=== PATIENT | male | born 1955 | race Hispanic/Latino ===

== ENCOUNTER 2017-09-27 09:45 | Outpatient (CLI) | payer OTHER | END 2017-09-27 09:46 | disposition home or self-care (01) | LOC: BICRAD 09:45 | PROVIDERS: ATTEND Internal Medicine | DX: Z02.71 Encounter for disability determination (principal); M17.11 Unilateral primary osteoarthritis, right knee ==

== ENCOUNTER 2020-10-29 10:42 | Emergency (ER) | payer OTHER, SELFPAY ==
[2020-10-29 11:32] LABS: Hemoglobin 11.2 g/dL (14.0-18.0); Mean Corpuscular Hemoglobin 27.5 pg (27.0-31.0); Mean Corpuscular Volume 88.9 fL (78.0-98.0); Mean Platelet Volume 9.3 fL (7.4-10.4); Platelet Count 190 thou/uL (130-400); RBC Distribution Width 12.6 % (11.5-14.5); Red Blood Cell (RBC) Count 4.07 mill/uL (4.70-6.10); White Blood Cell (WBC) Count 13.6 thou/uL (4.8-10.8)
[2020-10-29] MEDS ORDERED: cefTRIAXone\\ROCEPHIN 2 GM VIAL ONE (11:32)
[2020-10-29 11:37] LABS: INR-International Normal Ratio 1.6; PTT 33.8 sec (22.9-36.1)
[2020-10-29] MEDS ORDERED: Cefepime 2 GM VIAL ONE (11:41)
[2020-10-29] MEDS ORDERED: Norepinephrine 8 MG/0.9% NS 250 ML ONE (11:44)
[2020-10-29 11:54] LABS: Bacteria/HPF 4+ HPF (None Seen); Bilirubin Negative (Negative); Blood, Urine 1+ (Negative); Clarity Turbid (Clear); Glucose, Urine (Dipstick) Greater than 1000 mg/dL (Negative); Ketone, Urine Negative (Negative); Leukocyte 75 Leu/uL (Negative); Nitrite Negative (Negative); Protein, Urine (Dipstick) 100 mg/dL (Neg-Trace); Specific Gravity, Urine 1.022 (1.002-1.036); Squamous Epithelial 0-3 HPF (0-3); Urobilinogen Normal mg/dL (Less than 2); WBC/HPF 21-50 HPF (0-3); pH, Urine 5.5 (5.0-9.0)
[2020-10-29 12:10] LABS: ALT (SGPT) 54 U/L (8-55); AST (SGOT) 168 U/L (5-34); Albumin 3.3 g/dL (3.4-4.8); Alkaline Phosphatase 157 U/L (40-110); Anion Gap 23 mmol/L (10-20); BUN (Urea Nitrogen) 35 mg/dL (8.4-25.7); Bilirubin, Total 0.6 mg/dL (0.2-1.2); Calc. Creatinine Clearance 0 mL/min (70-130); Carbon Dioxide 15 mmol/L (23-31); Chloride 102 mmol/L (98-107); Glucose 452 mg/dL (80-115); Potassium 3.7 mmol/L (3.5-5.1); Protein, Total 6.3 g/dL (5.8-8.1); Sodium 136 mmol/L (136-145)
[2020-10-29 12:21] LABS: Band 41 % (5-11); Eosinophils 1 % (0-10); Lymphocytes 3 % (21-51); MDiff Complete? YES; Monocytes 1 % (0-10); Neutrophil 54 % (42-75); Platelet Morphology Comment Appears Adequate; Polychromasia SLIGHT = 2-3 cells (100X) (0-2/hpf)
[2020-10-29 12:23] LABS: CKMB 33.1 ng/mL (0-6.6)
--- NOTE | 2020-10-29 12:36 | RAD ---
EXAM: Single view of the chest HISTORY: Fall at home. Fever. COMPARISON: None FINDINGS: Single view of the chest shows a normal sized cardiomediastinal silhouette. A right IJ aubrey tral venous catheter seen with its tip in superior vena cava. There is no evidence of consolidation, mass, or pleural effusion. Degenerative changes are seen in the spine. IMPRESSION: No evidence of acute cardiopulmonary disease
--- NOTE | 2020-10-29 13:01 | CT ---
CT Abdomen Pelvis WO Con: 10/29/2020 12:30 PM HISTORY: Abdominal pain COMPARISON: None. TECHNIQUE: Multiple contiguous axial images were obtained and a CT of the abdomen and pelvis without IV contrast . Coronal and sagittal reformats were performed. FINDINGS: This examination is limited for the evaluation of solid organs and vascular structures due to the lac k of intravenous contrast. Lower Chest: Opacities in the lung bases may represent atelectasis or subtle infiltrates. Abdomen: Liver: within normal limits. Bile Ducts: Normal caliber. Gallbladder: No calcified gallstones. Normal caliber wall. Pancreas: within normal limits. Spleen: within normal limits. Adrenals: 2.9 cm right adrenal mass with mean Hounsfield value of 2. Kidneys: within normal limits. Pelvis: Reproductive Organs: No pelvic masses. Ureters: within normal limits. Bladder: Air present within the urinary bladder. Bowel: Normal caliber. Normal appendix. Mesenteric Lymph Nodes: No enlarged mesenteric lymph nodes. Peritoneum: No ascites or free air, no fluid collection. Vessels: Atherosclerotic calcifications in the aorta Retroperitoneum: within normal limits. Abdominal Wall: within normal limits. Bones: Degenerative changes in the spine. IMPRESSION: . No evidence of acute intra-abdominal/pelvic abnormality 2. Right adrenal adenoma 3. Possible lower lobe infiltrates in the lungs 4. Air in the urinary bladder may be from recent instrumentation. This could also be secondary to a u rinary tract infection.
[2020-10-29] MEDS ORDERED: VANCOMYCIN 2 GRAM/400 ML BAG 2 GM in Premix Bag 1 BAG IVPB SCH (13:15)
[2020-10-29 13:22] LABS: SARS-CoV-2 NAA Rapid Test DETECTED (NotDetected)
[2020-10-29] MEDS ORDERED: Aspirin 325 MG TAB ONE (13:38)
[2020-10-29] MEDS ORDERED: Enoxaparin Sodium 100 MG/ML SYRINGE ONE ×2 (13:38→13:41)
[2020-10-29] MEDS ORDERED: Enoxaparin Sodium 30 MG/0.3 ML SYRINGE ONE (13:38)
[2020-10-29] MEDS ORDERED: Aspirin Chewable 81 MG TAB ONE (13:43)
[2020-10-29 14:52] LABS: Lactic Acid 3.5 mmol/L (0.5-2.2)
--- NOTE | 2020-11-01 15:39 | EKG ---
Test Reason : SEPSIS ALERT Blood Pressure : / mmHG Vent. Rate : 113 BPM Atrial Rate : 113 BPM P-R Int : 184 ms QRS Dur : 104 ms QT Int : 360 ms P-R-T Axes : 014 -50 066 degrees QTc Int : 493 ms Sinus tachycardia with occasional Premature ventricular complexes and Fusion complexes Left anterior fascicular block Abnormal ECG Confirmed by IVON NARAYANAN DO ([id number]), marketing editor KARELY CARMONA ([id number] on 11/01/2020 3:39:14 PM Referred By: Confirmed By:IVON NARAYANAN DO
== END 2020-10-29 16:28 | disposition short-term general hospital (02) ==
LOC: ERS 10:42
DX: A41.9 Sepsis, unspecified organism (principal); R65.21 Severe sepsis with septic shock; I21.A1 Myocardial infarction type 2; U07.1 COVID-19; N39.0 Urinary tract infection, site not specified; E11.65 Type 2 diabetes mellitus with hyperglycemia; Z79.84 Long term (current) use of oral hypoglycemic drugs
CPT/HCPCS: 0240U; 36415; 36416; 36556; 71045; 74176; 80053; 81003; 81015; 82010; 82553; 83605; 84484; 85025; 85610; 85730; 87040; 87045; 87046; 87077; 87086; 87149; 87186; 87324; 87427; 87449; 93005; 94760; 96365; 96366; 96367; 96372; 99292; J0692; J0696; J1650; J3370

== ENCOUNTER 2021-01-19 12:59 | Outpatient (CLI) | payer MEDICARE | END 2021-01-19 13:00 | disposition home or self-care (01) | LOC: ULT 12:59 | PROVIDERS: ATTEND Internal Medicine Infectious Disease | DX: I38 Endocarditis, valve unspecified (principal); I07.1 Rheumatic tricuspid insufficiency; I37.1 Nonrheumatic pulmonary valve insufficiency | CPT/HCPCS: 93306 ==

== ENCOUNTER 2022-03-09 19:39 | Inpatient (IN) | payer MEDICARE ==
[2022-03-09] MEDS ORDERED: Cefepime 2 GM VIAL ONE (20:03)
[2022-03-09] MEDS ORDERED: VANCOMYCIN 2 GRAM/500 ML BAG 2 GM in Premix Bag 1 BAG IVPB SCH (20:15)
[2022-03-09 20:21] LABS: #Monocytes 0.7 thou/uL (0.11-0.59); #Neutrophils 9.2 thou/uL (1.40-6.50); %Basophils 0.4 % (0.0-1.0); %Eosinophils 0.2 % (0.0-10.0); %Lymphocytes 9.2 % (21.0-51.0); %Monocytes 6.6 % (0.0-10.0); %Neutrophils 83.6 % (42.0-75.0); Hemoglobin 12.8 g/dL (14.0-18.0); Mean Corpuscular HGB CONC 33.1 g/dL (32.0-36.0); Mean Corpuscular Hemoglobin 29.3 pg (27.0-31.0); Mean Corpuscular Volume 88.5 fL (78.0-98.0); Platelet Count 235 thou/uL (130-400); RBC Distribution Width 11.5 % (11.5-14.5); Red Blood Cell (RBC) Count 4.35 mill/uL (4.70-6.10)
[2022-03-09 20:43] LABS: ALT (SGPT) 11 U/L (8-55); AST (SGOT) 10 U/L (5-34); Albumin 3.7 g/dL (3.4-4.8); Alkaline Phosphatase 162 U/L (40-110); Anion Gap 25 mmol/L (10-20); BUN (Urea Nitrogen) 41 mg/dL (8.4-25.7); Bilirubin, Total 0.5 mg/dL (0.2-1.2); CK (CPK) 78 U/L (30-200); Calc. Creatinine Clearance 0 mL/min (70-130); Calcium 8.9 mg/dL (7.8-10.44); Carbon Dioxide 20 mmol/L (23-31); Chloride 84 mmol/L (98-107); Estimated GFR 21; Globulin 3.7 g/dL (2.4-3.5); Potassium 4.6 mmol/L (3.5-5.1); Protein, Total 7.4 g/dL (5.8-8.1); Sodium 124 mmol/L (136-145)
[2022-03-09 20:54] LABS: Glucose 888 mg/dL (80-115)
[2022-03-09 21:04] LABS: CKMB 1.2 ng/mL (0-6.6)
[2022-03-09] MEDS ORDERED: Insulin Regular 300 UNITS/3 ML VIAL ONE (21:53)
[2022-03-09] MEDS ORDERED: Aspirin Chewable 81 MG TAB ONE (21:53)
[2022-03-09] MEDS ORDERED: Ondansetron PF 4 MG/2 ML Vial IVP PRN (22:40)
[2022-03-09] MEDS ORDERED: Acetaminophen 325 MG TAB PO PRN (22:40)
[2022-03-09 22:56] LABS: Anion Gap 18 mmol/L (10-20); BUN (Urea Nitrogen) 38 mg/dL (8.4-25.7); Calc. Creatinine Clearance 0 mL/min (70-130); Calcium 8.7 mg/dL (7.8-10.44); Carbon Dioxide 23 mmol/L (23-31); Chloride 89 mmol/L (98-107); Estimated GFR 24; Sodium 126 mmol/L (136-145)
[2022-03-09 22:58] LABS: Bacteria/HPF 1+ HPF (None Seen); Bilirubin Negative (Negative); Blood, Urine 1+ (Negative); Clarity Clear (Clear); Glucose, Urine (Dipstick) Greater than 1000 mg/dL (Negative); Ketone, Urine Negative (Negative); Leukocyte 250 Leu/uL (Negative); Nitrite Negative (Negative); Protein, Urine (Dipstick) 30 mg/dL (Neg-Trace); Renal Epithelial 0-3 HPF (None Seen); Specific Gravity, Urine 1.015 (1.002-1.036); Squamous Epithelial 0-3 HPF (0-3); Urobilinogen Normal mg/dL (Less than 2); Yeast-Budding 1+ HPF (None Seen); pH, Urine 5.5 (5.0-9.0)
[2022-03-09 23:01] LABS: Glucose 726 mg/dL (80-115)
[2022-03-09 23:03] LABS: Amphetamine Not Detected (NotDetected); Barbiturates Screen Not Detected (NotDetected); Benzodiazepine Screen Not Detected (NotDetected); Cocaine Metabolite Screen Not Detected (NotDetected); Methadone Not Detected (NotDetected); Methamphetamine Not Detected (NotDetected); Opiate Screen Not Detected (NotDetected); Oxycodone Screen Not Detected (NotDetected); Phencyclidine (PCP) Not Detected (NotDetected); THC/Cannabinoid Screen Not Detected (NotDetected); Tricyclic Screen Not Detected (NotDetected)
[2022-03-09 23:04] LABS: Actual Bicarbonate (HCO3v) 24 mEq/L (22-28); Analyzer IN Cardio ER; Base Excess -2.1 mEq/L (-2.0 to +3.0); Calcium, Ionized (venous) 1.07 mmol/L (1.16-1.32); Chloride (VBG) 91 mmol/L (98-106); Hemoglobin (Hb) 13.3 g/dL (13.1-17.2); Potassium (VBG) 4.19 mmol/L (3.70-5.30); Sodium 126.1 mmol/L (133-146); pH (venous) 7.35 (7.32-7.43)
[2022-03-09 23:10] LABS: Troponin I 0.077 ng/mL (< 0.028)
[2022-03-09] MEDS ORDERED: HumaLOG 300 UNITS/3 ML VIAL SC PRN (23:10)
[2022-03-09] MEDS ORDERED: Dextrose 50% Abboject 50 ML SYRINGE SLOW IVP PRN (23:10)
[2022-03-09] MEDS ORDERED: Dextrose 5% in Water 1,000 ML IV PRN (23:10)
[2022-03-09 23:20] LABS: Lactic Acid 2.9 mmol/L (0.5-2.2)
[2022-03-09] MEDS ORDERED: Insulin Glargine 30 UNITS/0.3 ML VIAL SC SCH (23:30)
[2022-03-09 23:43] LABS: SARS-CoV-2 NAA Rapid Test Not Detected (NotDetected)
[2022-03-10] MEDS ORDERED: Lactated Ringer's 1,000 ML IV SCH (01:30)
[2022-03-10 01:59] VITALS: BMI 45.9
[2022-03-10 02:22] LABS: #Basophils 0.1 thou/uL (0.0-0.2); #Monocytes 0.8 thou/uL (0.11-0.59); #Neutrophils 7.4 thou/uL (1.40-6.50); %Basophils 0.6 % (0.0-1.0); %Eosinophils 0.4 % (0.0-10.0); %Lymphocytes 19.6 % (21.0-51.0); %Monocytes 7.9 % (0.0-10.0); %Neutrophils 71.6 % (42.0-75.0); Hemoglobin 12.9 g/dL (14.0-18.0); Mean Corpuscular HGB CONC 33.8 g/dL (32.0-36.0); Mean Corpuscular Hemoglobin 29.8 pg (27.0-31.0); Mean Corpuscular Volume 88.2 fL (78.0-98.0); Mean Platelet Volume 8.6 fL (7.4-10.4); Platelet Count 218 thou/uL (130-400); RBC Distribution Width 11.5 % (11.5-14.5); Red Blood Cell (RBC) Count 4.32 mill/uL (4.70-6.10); White Blood Cell (WBC) Count 10.4 thou/uL (4.8-10.8)
[2022-03-10 02:39] LABS: Glucose POC Confirmation 637 mg/dl (80-115)
[2022-03-10 02:41] LABS: Hemoglobin A1c Greater than 14.0 % (4.0-6.0)
[2022-03-10] MEDS ORDERED: hydrALAZINE 20 MG/ML VIAL SLOW IVP PRN (02:43)
[2022-03-10] MEDS ORDERED: Sodium Chloride 0.9% 1,000 ML IV SCH (02:45)
[2022-03-10 02:47] LABS: Troponin I 0.107 ng/mL (< 0.028)
[2022-03-10] MEDS: HumaLOG 300 UNITS/3 ML VIAL SC PRN ×4 (02:49→19:08)
[2022-03-10 06:56] LABS: Lactic Acid 2.7 mmol/L (0.5-2.2)
[2022-03-10 07:05] LABS: Troponin I 0.119 ng/mL (< 0.028)
[2022-03-10] MEDS ORDERED: cefTRIAXone\\ROCEPHIN 1 GM in Sodium Chloride 0.9% 100 ML IVPB SCH (08:00)
[2022-03-10] MEDS ORDERED: Heparin 5,000 UNITS/ML VIAL SC SCH (09:00)
[2022-03-10] MEDS: Aspirin Chewable 81 MG TAB PO SCH (10:44)
[2022-03-10] MEDS ORDERED: Meropenem 1 GM in Sodium Chloride 0.9% 100 ML IVPB SCH ×2 (15:15→22:00)
[2022-03-10 15:58] LABS: #Basophils 0.1 thou/uL (0.0-0.2); #Eosinphils 0.2 thou/uL (0.0-0.7); #Lymphocytes 1.6 thou/uL (1.20-3.40); #Monocytes 0.7 thou/uL (0.11-0.59); #Neutrophils 6.3 thou/uL (1.40-6.50); %Basophils 0.6 % (0.0-1.0); %Eosinophils 2.1 % (0.0-10.0); %Lymphocytes 18.3 % (21.0-51.0); %Monocytes 7.7 % (0.0-10.0); %Neutrophils 71.4 % (42.0-75.0); Hemoglobin 11.6 g/dL (14.0-18.0); Mean Corpuscular HGB CONC 33.5 g/dL (32.0-36.0); Mean Corpuscular Hemoglobin 29.2 pg (27.0-31.0); Mean Corpuscular Volume 87.1 fL (78.0-98.0); Mean Platelet Volume 8.4 fL (7.4-10.4); Platelet Count 217 thou/uL (130-400); RBC Distribution Width 11.4 % (11.5-14.5); Red Blood Cell (RBC) Count 3.97 mill/uL (4.70-6.10); White Blood Cell (WBC) Count 8.8 thou/uL (4.8-10.8)
[2022-03-10 16:20] LABS: ALT (SGPT) 8 U/L (8-55); AST (SGOT) 15 U/L (5-34); Albumin 3.2 g/dL (3.4-4.8); Alkaline Phosphatase 133 U/L (40-110); Anion Gap 12 mmol/L (10-20); BUN (Urea Nitrogen) 30 mg/dL (8.4-25.7); Bilirubin, Total 0.3 mg/dL (0.2-1.2); Calc. Creatinine Clearance 80 mL/min (70-130); Calcium 8.8 mg/dL (7.8-10.44); Carbon Dioxide 28 mmol/L (23-31); Chloride 96 mmol/L (98-107); Estimated GFR 44; Globulin 3.6 g/dL (2.4-3.5); Glucose 208 mg/dL (80-115); Potassium 3.2 mmol/L (3.5-5.1); Protein, Total 6.8 g/dL (5.8-8.1); Sodium 133 mmol/L (136-145)
[2022-03-10] MEDS: Sodium Chloride 0.9% 1,000 ML IV SCH (16:25)
[2022-03-10] MEDS ORDERED: Potassium Chloride 20 MEQ TAB PO SCH (17:45)
[2022-03-10] MEDS: Rivaroxaban 10 MG TAB PO SCH (17:51)
[2022-03-10] MEDS: Atorvastatin Calcium 40 MG TAB PO SCH (20:27)
[2022-03-10] MEDS: Insulin Glargine 30 UNITS/0.3 ML VIAL SC SCH (20:27)
[2022-03-10 20:55] LABS: Creatinine, Urine 26.81 mg/dL (63-166); Microalbumin Urine 7.4 mg/dL (0.5-50.0)
[2022-03-11] MEDS: Sodium Chloride 0.9% 1,000 ML IV SCH ×3 (00:57→16:29)
[2022-03-11 05:00] LABS: #Basophils 0.1 thou/uL (0.0-0.2); #Eosinphils 0.3 thou/uL (0.0-0.7); #Lymphocytes 1.5 thou/uL (1.20-3.40); #Monocytes 0.7 thou/uL (0.11-0.59); #Neutrophils 7.4 thou/uL (1.40-6.50); %Basophils 0.8 % (0.0-1.0); %Eosinophils 3.1 % (0.0-10.0); %Lymphocytes 14.7 % (21.0-51.0); %Monocytes 6.8 % (0.0-10.0); %Neutrophils 74.7 % (42.0-75.0); Hemoglobin 12.8 g/dL (14.0-18.0); Mean Corpuscular HGB CONC 33.2 g/dL (32.0-36.0); Mean Corpuscular Hemoglobin 29.5 pg (27.0-31.0); Mean Corpuscular Volume 88.9 fL (78.0-98.0); Mean Platelet Volume 8.5 fL (7.4-10.4); Platelet Count 234 thou/uL (130-400); RBC Distribution Width 11.5 % (11.5-14.5); Red Blood Cell (RBC) Count 4.34 mill/uL (4.70-6.10)
[2022-03-11] MEDS: HumaLOG 300 UNITS/3 ML VIAL SC PRN ×2 (05:56→13:00)
[2022-03-11] MEDS ORDERED: Meropenem 1 GM in Sodium Chloride 0.9% 100 ML IVPB SCH (06:00)
[2022-03-11 08:00] LABS: Albumin 3.2 g/dL (3.4-4.8); Anion Gap 11 mmol/L (10-20); BUN (Urea Nitrogen) 24 mg/dL (8.4-25.7); BUN/Creatinine Ratio 17.52; Calc. Creatinine Clearance 99 mL/min (70-130); Calcium 8.9 mg/dL (7.8-10.44); Carbon Dioxide 29 mmol/L (23-31); Chloride 97 mmol/L (98-107); Estimated GFR 58; Glucose 158 mg/dL (80-115); Magnesium 2.2 mg/dL (1.6-2.6); Phosphorus 2.6 mg/dL (2.3-4.7); Potassium 3.6 mmol/L (3.5-5.1); Sodium 133 mmol/L (136-145)
[2022-03-11] MEDS: Aspirin Chewable 81 MG TAB PO SCH (09:44)
[2022-03-11] MEDS: Meropenem 1 GM in Sodium Chloride 0.9% 100 ML IVPB SCH ×2 (13:00→20:17)
[2022-03-11] MEDS: Rivaroxaban 10 MG TAB PO SCH (16:27)
[2022-03-11] MEDS: Insulin Glargine 30 UNITS/0.3 ML VIAL SC SCH (20:18)
[2022-03-11] MEDS: Atorvastatin Calcium 40 MG TAB PO SCH (20:18)
[2022-03-12] MEDS: Sodium Chloride 0.9% 1,000 ML IV SCH (02:33)
[2022-03-12 04:42] LABS: #Basophils 0.1 thou/uL (0.0-0.2); #Eosinphils 0.3 thou/uL (0.0-0.7); #Lymphocytes 1.8 thou/uL (1.20-3.40); #Monocytes 0.8 thou/uL (0.11-0.59); #Neutrophils 5.4 thou/uL (1.40-6.50); %Basophils 0.7 % (0.0-1.0); %Eosinophils 3.9 % (0.0-10.0); %Lymphocytes 21.2 % (21.0-51.0); %Monocytes 9.9 % (0.0-10.0); %Neutrophils 64.3 % (42.0-75.0); Hemoglobin 11.9 g/dL (14.0-18.0); Mean Corpuscular HGB CONC 32.2 g/dL (32.0-36.0); Mean Corpuscular Hemoglobin 28.9 pg (27.0-31.0); Mean Corpuscular Volume 89.8 fL (78.0-98.0); Mean Platelet Volume 8.5 fL (7.4-10.4); Platelet Count 232 thou/uL (130-400); RBC Distribution Width 11.5 % (11.5-14.5); White Blood Cell (WBC) Count 8.5 thou/uL (4.8-10.8)
[2022-03-12 05:04] LABS: Albumin 2.8 g/dL (3.4-4.8); Anion Gap 14 mmol/L (10-20); BUN (Urea Nitrogen) 15 mg/dL (8.4-25.7); BUN/Creatinine Ratio 14.29; Calc. Creatinine Clearance 130 mL/min (70-130); Calcium 8.7 mg/dL (7.8-10.44); Carbon Dioxide 25 mmol/L (23-31); Chloride 102 mmol/L (98-107); Estimated GFR 79; Glucose 169 mg/dL (80-115); Phosphorus 2.4 mg/dL (2.3-4.7); Potassium 3.7 mmol/L (3.5-5.1); Sodium 137 mmol/L (136-145)
[2022-03-12] MEDS: Meropenem 1 GM in Sodium Chloride 0.9% 100 ML IVPB SCH (05:54)
[2022-03-12] MEDS: Aspirin Chewable 81 MG TAB PO SCH (08:48)
[2022-03-12] MEDS ORDERED: Amlodipine 5 MG TAB PO SCH (10:00)
[2022-03-12 12:12] VITALS: BP 138/78; TEMP 98
[2022-03-13] MEDS ORDERED: Amlodipine 5 MG TAB PO SCH (09:00)
== END 2022-03-12 13:30 | disposition home or self-care (01) | DRG 871 ==
LOC: ERS 19:39 → 2SW 21:45 → OBSVTOIN 03-10 15:47
PROVIDERS: ADMIT Internal Medicine; ATTEND Internal Medicine
DX: A41.9 Sepsis, unspecified organism (principal); E11.10 Type 2 diabetes mellitus with ketoacidosis without coma; I21.A1 Myocardial infarction type 2; I50.42 Chronic combined systolic (congestive) and diastolic (congestive) heart failure; N17.9 Acute kidney failure, unspecified; N39.0 Urinary tract infection, site not specified; E87.1 Hypo-osmolality and hyponatremia; Z68.42 Body mass index [BMI] 45.0-49.9, adult; Z20.822 Contact with and (suspected) exposure to COVID-19; I11.0 Hypertensive heart disease with heart failure; D64.9 Anemia, unspecified; F17.210 Nicotine dependence, cigarettes, uncomplicated; E86.0 Dehydration; E66.01 Morbid (severe) obesity due to excess calories; E78.5 Hyperlipidemia, unspecified; E11.21 Type 2 diabetes mellitus with diabetic nephropathy; Z79.01 Long term (current) use of anticoagulants; Z79.4 Long term (current) use of insulin; Z79.82 Long term (current) use of aspirin; Z79.899 Other long term (current) drug therapy; Z79.84 Long term (current) use of oral hypoglycemic drugs
CPT/HCPCS: 0439T; 36415; 36416; 70450; 71045; 80053; 80069; 80306; 81003; 81015; 82010; 82043; 82550; 82553; 82805; 82947; 83036; 83605; 83735; 83880; 84156; 84484; 85025; 87040; 87070; 87077; 87086; 87149; 87186; 87205; 93005; 93306; 97139; J0692; J0696; J1815; J2185; J3370; J3490; J7050

== ENCOUNTER 2022-06-19 19:03 | Inpatient (IN) | payer MEDICARE, OTHER ==
[2022-06-19 19:40] LABS: #Basophils 0.1 thou/uL (0.0-0.2); #Lymphocytes 1.8 thou/uL (1.20-3.40); #Monocytes 1.2 thou/uL (0.11-0.59); #Neutrophils 11.4 thou/uL (1.40-6.50); %Basophils 0.4 % (0.0-1.0); %Eosinophils 0.3 % (0.0-10.0); %Lymphocytes 12.7 % (21.0-51.0); %Neutrophils 78.6 % (42.0-75.0); Hemoglobin 12.2 g/dL (14.0-18.0); Mean Corpuscular HGB CONC 32.2 g/dL (32.0-36.0); Mean Corpuscular Hemoglobin 28.8 pg (27.0-31.0); Mean Corpuscular Volume 89.2 fL (78.0-98.0); Mean Platelet Volume 7.7 fL (7.4-10.4); Platelet Count 525 thou/uL (130-400); RBC Distribution Width 13.3 % (11.5-14.5); Red Blood Cell (RBC) Count 4.25 mill/uL (4.70-6.10); White Blood Cell (WBC) Count 14.5 thou/uL (4.8-10.8)
[2022-06-19] MEDS ORDERED: Cefepime 2 GM VIAL ONE (19:54)
[2022-06-19] MEDS ORDERED: Vancomycin 1 GM/200 ML BAG ONE (19:54)
[2022-06-19 19:59] LABS: INR-International Normal Ratio 1.4; PTT 36.2 sec (22.9-36.1); Prothrombin Time 17.2 sec (12.0-14.7)
[2022-06-19 20:03] LABS: ALT (SGPT) 13 U/L (8-55); AST (SGOT) 9 U/L (5-34); Albumin 2.7 g/dL (3.4-4.8); Alkaline Phosphatase 132 U/L (40-110); Anion Gap 22 mmol/L (10-20); BUN (Urea Nitrogen) 66 mg/dL (8.4-25.7); Bilirubin, Total 0.6 mg/dL (0.2-1.2); Calc. Creatinine Clearance 0 mL/min (70-130); Calcium 8.6 mg/dL (7.8-10.44); Carbon Dioxide 12 mmol/L (23-31); Chloride 102 mmol/L (98-107); Estimated GFR 60; Globulin 4.9 g/dL (2.4-3.5); Glucose 509 mg/dL (80-115); Potassium 4.9 mmol/L (3.5-5.1); Protein, Total 7.6 g/dL (5.8-8.1); Sodium 131 mmol/L (136-145)
[2022-06-19 20:33] LABS: CK (CPK) 161 U/L (30-200); Lipase 8 U/L (8-78)
[2022-06-19] MEDS ORDERED: INSULIN REGULAR IN 0.9 % NACL 100 UNIT/100 ML BAG ONE (21:08)
[2022-06-19 21:14] LABS: CKMB 1.4 ng/mL (0-6.6)
[2022-06-19 21:16] LABS: Analyzer IN Cardio ER; Base Excess -11.8 mEq/L (-2.0 to +3.0); Calcium, Ionized (venous) 1.03 mmol/L (1.16-1.32); Chloride (VBG) 104 mmol/L (98-106); Hemoglobin (Hb) 11.9 g/dL (12.6-17.4); Potassium (VBG) 4.86 mmol/L (3.70-5.30); pH (venous) 7.25 (7.32-7.43)
[2022-06-19 21:21] LABS: Actual Bicarbonate (HCO3v) 14 mEq/L (22-28)
[2022-06-19] MEDS ORDERED: Sodium Bicarb 50 MEQ/50 ML VIAL ONE ×2 (21:35→21:37)
[2022-06-19] MEDS ORDERED: NOREPINEPHRINE 8 MG/250 ML-D5W 250 ML ONE (21:45)
[2022-06-19] MEDS ORDERED: NOREPINEPHRINE 8 MG/250 ML-D5W 250 ML IVPB SCH (22:00)
[2022-06-19] MEDS ORDERED: Acetaminophen 650 MG Suppository PR PRN (22:00)
[2022-06-19] MEDS ORDERED: Dextrose 5% in Water 1,000 ML IV PRN (22:00)
[2022-06-19] MEDS ORDERED: Ondansetron ODT 4 MG TAB PO PRN (22:00)
[2022-06-19] MEDS ORDERED: Dextrose 50% Abboject 50 ML SYRINGE SLOW IVP PRN (22:00)
[2022-06-19] MEDS ORDERED: NS 0.9% w/ 20 MEQ KCL 1,000 ML IV PRN ×2 (22:03)
[2022-06-19] MEDS ORDERED: Dextrose 5 %-0.45 % NaCl 1,000 ML IV PRN (22:03)
[2022-06-19] MEDS ORDERED: Sodium Chloride 0.9% 1,000 ML IV PRN ×4 (22:03)
[2022-06-19] MEDS ORDERED: Electrolyte Replacement Protocol 1 EACH IVPB PRN (22:03)
[2022-06-19] MEDS ORDERED: HUMULIN R 100 UNITS in Sodium Chloride 0.9% 100 ML IVPB SCH (22:15)
[2022-06-19] MEDS ORDERED: Piperacillin/Tazobactam 3.375 GM in Sodium Chloride 0.9% 100 ML IVPB SCH (22:45)
[2022-06-19 23:25] LABS: SARS-CoV-2 NAA Rapid Test Not Detected (NotDetected)
[2022-06-20 00:28] LABS: Anion Gap 20 mmol/L (10-20); BUN (Urea Nitrogen) 68 mg/dL (8.4-25.7); Calc. Creatinine Clearance 0 mL/min (70-130); Calcium 8.1 mg/dL (7.8-10.44); Carbon Dioxide 14 mmol/L (23-31); Chloride 107 mmol/L (98-107); Estimated GFR 50; Glucose 296 mg/dL (80-115); Sodium 137 mmol/L (136-145)
[2022-06-20] MEDS: D5 1/2 NS w/20 mEq KCL 1,000 ML IV PRN ×4 (01:23→13:01)
[2022-06-20] MEDS ORDERED: Meropenem 1 GM in Sodium Chloride 0.9% 100 ML IVPB SCH ×3 (02:00→23:36)
[2022-06-20 02:02] LABS: Bacteria/HPF 4+ HPF (None Seen); Bilirubin Negative (Negative); Blood, Urine Negative (Negative); Clarity Turbid (Clear); Glucose, Urine (Dipstick) Greater than 1000 mg/dL (Negative); Ketone, Urine Negative (Negative); Leukocyte 500 Leu/uL (Negative); Nitrite Negative (Negative); Protein, Urine (Dipstick) 10 mg/dL (Neg-Trace); Squamous Epithelial 0-3 HPF (0-3); Urobilinogen Normal mg/dL (Less than 2); WBC/HPF 21-50 HPF (0-3); Yeast-Budding 1+ HPF (None Seen)
[2022-06-20 02:06] LABS: Troponin I 0.051 ng/mL (< 0.028)
[2022-06-20 02:22] LABS: RBC/HPF None Seen HPF (0-3)
[2022-06-20] MEDS ORDERED: Piperacillin/Tazobactam 3.375 GM in Sodium Chloride 0.9% 100 ML IVPB SCH (04:00)
[2022-06-20 04:42] LABS: Lactic Acid 3.7 mmol/L (0.5-2.2)
[2022-06-20 04:43] LABS: Anion Gap 15 mmol/L (10-20); BUN (Urea Nitrogen) 64 mg/dL (8.4-25.7); Calc. Creatinine Clearance 95 mL/min (70-130); Calcium 7.6 mg/dL (7.8-10.44); Carbon Dioxide 16 mmol/L (23-31); Chloride 111 mmol/L (98-107); Estimated GFR 64; Glucose 128 mg/dL (80-115); Potassium 4.1 mmol/L (3.5-5.1); Sodium 138 mmol/L (136-145)
[2022-06-20 05:25] LABS: Band 12 % (5-11); Lymphocytes 18 % (21-51); MDiff Complete? YES; Monocytes 10 % (0-10); Neutrophil 60 % (42-75)
[2022-06-20 05:26] LABS: Hemoglobin 9.9 g/dL (14.0-18.0); Mean Corpuscular HGB CONC 31.4 g/dL (32.0-36.0); Mean Platelet Volume 7.5 fL (7.4-10.4); Platelet Count 432 thou/uL (130-400); Red Blood Cell (RBC) Count 3.64 mill/uL (4.70-6.10)
[2022-06-20] MEDS ORDERED: FLU VACC QS2022-23(65YR UP)/PF 240 MCG/0.7 ML SYRINGE IM ONE (09:00)
[2022-06-20] MEDS: Enoxaparin Sodium 40 MG/0.4 ML SYRINGE SC SCH (09:02)
[2022-06-20 10:42] LABS: Anion Gap 12 mmol/L (10-20); BUN (Urea Nitrogen) 61 mg/dL (8.4-25.7); Calc. Creatinine Clearance 104 mL/min (70-130); Calcium 7.8 mg/dL (7.8-10.44); Carbon Dioxide 18 mmol/L (23-31); Chloride 109 mmol/L (98-107); Estimated GFR 71; Glucose 232 mg/dL (80-115); Potassium 4.3 mmol/L (3.5-5.1); Sodium 135 mmol/L (136-145)
[2022-06-20] MEDS ORDERED: Dextrose 50% Abboject 50 ML SYRINGE SLOW IVP PRN (13:13)
[2022-06-20] MEDS ORDERED: Dextrose 5% in Water 1,000 ML IV PRN ×2 (13:13→16:08)
[2022-06-20] MEDS ORDERED: Insulin Glargine 30 UNITS/0.3 ML VIAL SC SCH ×2 (14:00→21:00)
[2022-06-20] MEDS: Sodium Chloride 0.45% 1,000 ML IV SCH (16:15)
[2022-06-20] MEDS: Insulin Regular 300 UNITS/3 ML VIAL SC PRN (16:24)
[2022-06-20] MEDS: Meropenem 1 GM in Sodium Chloride 0.9% 100 ML IVPB SCH (20:20)
[2022-06-21] MEDS: Meropenem 1 GM in Sodium Chloride 0.9% 100 ML IVPB SCH ×2 (03:37→11:36)
[2022-06-21] MEDS: Insulin Regular 300 UNITS/3 ML VIAL SC PRN ×3 (03:49→17:05)
[2022-06-21 05:54] LABS: Anion Gap 12 mmol/L (10-20); BUN (Urea Nitrogen) 51 mg/dL (8.4-25.7); Calc. Creatinine Clearance 147 mL/min (70-130); Calcium 7.4 mg/dL (7.8-10.44); Carbon Dioxide 18 mmol/L (23-31); Chloride 109 mmol/L (98-107); Estimated GFR 98; Glucose 238 mg/dL (80-115); Potassium 4.3 mmol/L (3.5-5.1); Sodium 135 mmol/L (136-145)
[2022-06-21 06:14] LABS: Band 5 % (5-11); Hemoglobin 8.8 g/dL (14.0-18.0); Lymphocytes 13 % (21-51); MDiff Complete? YES; Mean Corpuscular HGB CONC 31.6 g/dL (32.0-36.0); Mean Corpuscular Hemoglobin 27.5 pg (27.0-31.0); Mean Corpuscular Volume 86.8 fL (78.0-98.0); Mean Platelet Volume 7.4 fL (7.4-10.4); Metamyelocyte 1 % (0-0); Monocytes 3 % (0-10); Myelocyte 1 % (0-0); Neutrophil 77 % (42-75); Platelet Count 348 thou/uL (130-400); Red Blood Cell (RBC) Count 3.22 mill/uL (4.70-6.10); White Blood Cell (WBC) Count 14.8 thou/uL (4.8-10.8)
[2022-06-21] MEDS: Enoxaparin Sodium 40 MG/0.4 ML SYRINGE SC SCH (08:32)
[2022-06-21] MEDS: Sodium Chloride 0.45% 1,000 ML IV SCH ×2 (11:35→19:10)
[2022-06-21] MEDS ORDERED: Piperacillin/Tazobactam 3.375 GM in Sodium Chloride 0.9% 100 ML IVPB SCH ×2 (16:15→16:30)
[2022-06-21] MEDS: Lisinopril 20 MG TAB PO SCH (21:46)
[2022-06-21] MEDS: Piperacillin/Tazobactam 3.375 GM in Sodium Chloride 0.9% 100 ML IVPB SCH (21:48)
[2022-06-21] MEDS: Atorvastatin Calcium 40 MG TAB PO SCH (21:49)
[2022-06-21] MEDS: Insulin Glargine 30 UNITS/0.3 ML VIAL SC SCH (21:55)
[2022-06-21] MEDS: Ondansetron PF 4 MG/2 ML Vial IVP PRN (22:17)
[2022-06-22] MEDS: Piperacillin/Tazobactam 3.375 GM in Sodium Chloride 0.9% 100 ML IVPB SCH ×3 (05:58→20:35)
[2022-06-22] MEDS: Sodium Chloride 0.45% 1,000 ML IV SCH ×2 (06:01→20:48)
[2022-06-22 06:54] LABS: Anion Gap 8 mmol/L (10-20); BUN (Urea Nitrogen) 31 mg/dL (8.4-25.7); Calc. Creatinine Clearance 158 mL/min (70-130); Calcium 7.5 mg/dL (7.8-10.44); Carbon Dioxide 20 mmol/L (23-31); Chloride 107 mmol/L (98-107); Estimated GFR 100; Glucose 259 mg/dL (80-115); Sodium 131 mmol/L (136-145)
[2022-06-22 07:19] LABS: Hemoglobin 9.3 g/dL (14.0-18.0); Mean Corpuscular HGB CONC 30.9 g/dL (32.0-36.0); Mean Corpuscular Volume 87.4 fl (78.0-98.0); Mean Platelet Volume 7.4 fL (7.4-10.4); Platelet Count 340 thou/uL (130-400); Red Blood Cell (RBC) Count 3.42 mill/uL (4.70-6.10); White Blood Cell (WBC) Count 16.4 thou/uL (4.8-10.8)
[2022-06-22 07:37] LABS: Band 3 % (5-11); Lymphocytes 11 % (21-51); MDiff Complete? YES; Metamyelocyte 1 % (0-0); Monocytes 2 % (0-10); Neutrophil 83 % (42-75); Platelet Morphology Comment Appears Adequate; Polychromasia SLIGHT = 2-3 cells (100X) (0-2/hpf)
[2022-06-22] MEDS: Enoxaparin Sodium 40 MG/0.4 ML SYRINGE SC SCH (09:00)
[2022-06-22] MEDS: Insulin Regular 300 UNITS/3 ML VIAL SC PRN ×3 (11:45→21:20)
[2022-06-22] MEDS: Lisinopril 20 MG TAB PO SCH (20:34)
[2022-06-22] MEDS: Atorvastatin Calcium 40 MG TAB PO SCH (20:35)
[2022-06-22] MEDS: Insulin Glargine 30 UNITS/0.3 ML VIAL SC SCH (21:18)
[2022-06-23] MEDS: Piperacillin/Tazobactam 3.375 GM in Sodium Chloride 0.9% 100 ML IVPB SCH ×3 (04:32→20:19)
[2022-06-23] MEDS: Insulin Regular 300 UNITS/3 ML VIAL SC PRN (05:38)
[2022-06-23 06:56] LABS: #Eosinphils 0.1 thou/uL (0.0-0.7); #Lymphocytes 2.2 thou/uL (1.20-3.40); #Monocytes 0.6 thou/uL (0.11-0.59); #Neutrophils 12.3 thou/uL (1.40-6.50); %Basophils 0.1 % (0.0-1.0); %Eosinophils 0.8 % (0.0-10.0); %Lymphocytes 14.6 % (21.0-51.0); %Monocytes 4.1 % (0.0-10.0); %Neutrophils 80.5 % (42.0-75.0); Hemoglobin 8.5 g/dL (14.0-18.0); Mean Corpuscular HGB CONC 31.7 g/dL (32.0-36.0); Mean Corpuscular Hemoglobin 27.8 pg (27.0-31.0); Mean Corpuscular Volume 87.7 fl (78.0-98.0); Mean Platelet Volume 7.3 fL (7.4-10.4); Platelet Count 331 thou/uL (130-400); RBC Distribution Width 12.9 % (11.5-14.5); Red Blood Cell (RBC) Count 3.06 mill/uL (4.70-6.10); White Blood Cell (WBC) Count 15.3 thou/uL (4.8-10.8)
[2022-06-23 07:19] LABS: Anion Gap 10 mmol/L (10-20); BUN (Urea Nitrogen) 21 mg/dL (8.4-25.7); Calc. Creatinine Clearance 166 mL/min (70-130); Calcium 7.3 mg/dL (7.8-10.44); Carbon Dioxide 21 mmol/L (23-31); Chloride 106 mmol/L (98-107); Estimated GFR 101; Glucose 199 mg/dL (80-115); Potassium 3.9 mmol/L (3.5-5.1); Sodium 133 mmol/L (136-145)
[2022-06-23] MEDS: Insulin Glargine 30 UNITS/0.3 ML VIAL SC SCH ×2 (09:20→20:21)
[2022-06-23] MEDS: Enoxaparin Sodium 40 MG/0.4 ML SYRINGE SC SCH (09:20)
[2022-06-23] MEDS: Sodium Chloride 0.45% 1,000 ML IV SCH (14:16)
[2022-06-23] MEDS: Lisinopril 20 MG TAB PO SCH (20:19)
[2022-06-23] MEDS: Atorvastatin Calcium 40 MG TAB PO SCH (20:19)
[2022-06-24] MEDS: Sodium Chloride 0.45% 1,000 ML IV SCH ×2 (01:36→18:31)
[2022-06-24] MEDS: Piperacillin/Tazobactam 3.375 GM in Sodium Chloride 0.9% 100 ML IVPB SCH ×3 (04:12→20:13)
[2022-06-24] MEDS: Enoxaparin Sodium 40 MG/0.4 ML SYRINGE SC SCH (08:19)
[2022-06-24] MEDS: Insulin Glargine 30 UNITS/0.3 ML VIAL SC SCH ×2 (08:19→20:13)
[2022-06-24] MEDS ORDERED: Calcium Carbonate 500 MG ChewTAB PO PRN (19:32)
[2022-06-24] MEDS: Atorvastatin Calcium 40 MG TAB PO SCH (20:13)
[2022-06-24] MEDS: Lisinopril 20 MG TAB PO SCH (20:16)
[2022-06-25] MEDS: Sodium Chloride 0.45% 1,000 ML IV SCH ×3 (04:07→20:11)
[2022-06-25] MEDS: Piperacillin/Tazobactam 3.375 GM in Sodium Chloride 0.9% 100 ML IVPB SCH ×3 (04:15→20:10)
[2022-06-25 05:28] VITALS: BMI 46.5
[2022-06-25] MEDS: Insulin Glargine 30 UNITS/0.3 ML VIAL SC SCH ×2 (08:41→20:09)
[2022-06-25] MEDS: Enoxaparin Sodium 40 MG/0.4 ML SYRINGE SC SCH (08:41)
[2022-06-25] MEDS ORDERED: Furosemide 40 MG/4 ML VIAL SLOW IVP SCH (10:15)
[2022-06-25] MEDS: Atorvastatin Calcium 40 MG TAB PO SCH (20:09)
[2022-06-25] MEDS: Lisinopril 20 MG TAB PO SCH (20:09)
[2022-06-25] MEDS: Acetaminophen 325 MG TAB PO PRN (20:11)
[2022-06-26] MEDS: Piperacillin/Tazobactam 3.375 GM in Sodium Chloride 0.9% 100 ML IVPB SCH (05:38)
[2022-06-26 06:13] LABS: #Basophils 0.1 thou/uL (0.0-0.2); #Eosinphils 0.1 thou/uL (0.0-0.7); #Lymphocytes 2.2 thou/uL (1.20-3.40); #Monocytes 0.7 thou/uL (0.11-0.59); #Neutrophils 8.9 thou/uL (1.40-6.50); %Basophils 0.6 % (0.0-1.0); %Eosinophils 0.9 % (0.0-10.0); %Lymphocytes 18.7 % (21.0-51.0); %Monocytes 5.8 % (0.0-10.0); Hemoglobin 9.3 g/dL (14.0-18.0); Mean Corpuscular HGB CONC 32.7 g/dL (32.0-36.0); Mean Corpuscular Hemoglobin 28.3 pg (27.0-31.0); Mean Corpuscular Volume 86.8 fl (78.0-98.0); Mean Platelet Volume 7.1 fL (7.4-10.4); Platelet Count 351 thou/uL (130-400); Red Blood Cell (RBC) Count 3.29 mill/uL (4.70-6.10)
[2022-06-26 06:27] LABS: Anion Gap 9 mmol/L (10-20); BUN (Urea Nitrogen) 15 mg/dL (8.4-25.7); Calc. Creatinine Clearance 206 mL/min (70-130); Calcium 7.8 mg/dL (7.8-10.44); Carbon Dioxide 21 mmol/L (23-31); Chloride 107 mmol/L (98-107); Estimated GFR 104; Glucose 112 mg/dL (80-115); Sodium 133 mmol/L (136-145)
[2022-06-26] MEDS: Insulin Glargine 30 UNITS/0.3 ML VIAL SC SCH ×2 (08:24→19:52)
[2022-06-26] MEDS: Enoxaparin Sodium 40 MG/0.4 ML SYRINGE SC SCH (08:24)
[2022-06-26] MEDS: Acetaminophen 325 MG TAB PO PRN (19:51)
[2022-06-26] MEDS: Lisinopril 20 MG TAB PO SCH (19:51)
[2022-06-26] MEDS: Atorvastatin Calcium 40 MG TAB PO SCH (19:52)
[2022-06-27] MEDS ORDERED: Furosemide 40 MG/4 ML VIAL SLOW IVP SCH (08:45)
[2022-06-27] MEDS: Enoxaparin Sodium 40 MG/0.4 ML SYRINGE SC SCH (08:57)
[2022-06-27] MEDS: Insulin Glargine 30 UNITS/0.3 ML VIAL SC SCH ×3 (08:57→19:53)
[2022-06-27] MEDS: Ondansetron PF 4 MG/2 ML Vial IVP PRN (13:35)
[2022-06-27] MEDS ORDERED: Metoclopramide HCl 10 MG TAB PO PRN (14:29)
[2022-06-27 18:21] LABS: #Eosinphils 0.1 thou/uL (0.0-0.7); #Monocytes 0.8 thou/uL (0.11-0.59); #Neutrophils 11.6 thou/uL (1.40-6.50); %Basophils 0.3 % (0.0-1.0); %Eosinophils 0.4 % (0.0-10.0); %Lymphocytes 13.8 % (21.0-51.0); %Monocytes 5.6 % (0.0-10.0); %Neutrophils 79.9 % (42.0-75.0); Hemoglobin 8.9 g/dL (14.0-18.0); Mean Corpuscular HGB CONC 31.2 g/dL (32.0-36.0); Mean Corpuscular Hemoglobin 26.7 pg (27.0-31.0); Mean Corpuscular Volume 85.4 fl (78.0-98.0); Mean Platelet Volume 6.8 fL (7.4-10.4); Platelet Count 357 thou/uL (130-400); Red Blood Cell (RBC) Count 3.34 mill/uL (4.70-6.10); White Blood Cell (WBC) Count 14.5 thou/uL (4.8-10.8)
[2022-06-27 18:42] LABS: Anion Gap 9 mmol/L (10-20); BUN (Urea Nitrogen) 11 mg/dL (8.4-25.7); Calc. Creatinine Clearance 203 mL/min (70-130); Calcium 7.9 mg/dL (7.8-10.44); Carbon Dioxide 25 mmol/L (23-31); Chloride 104 mmol/L (98-107); Estimated GFR 104; Glucose 82 mg/dL (80-115); Potassium 4.2 mmol/L (3.5-5.1); Sodium 134 mmol/L (136-145)
[2022-06-27] MEDS: Lisinopril 20 MG TAB PO SCH (19:53)
[2022-06-27] MEDS: Atorvastatin Calcium 40 MG TAB PO SCH (19:54)
[2022-06-27 21:04] LABS: Bacteria/HPF 2+ HPF (None Seen); Bilirubin Negative (Negative); Blood, Urine 1+ (Negative); Clarity Turbid (Clear); Glucose, Urine (Dipstick) Normal (Negative); Ketone, Urine Negative (Negative); Leukocyte 500 Leu/uL (Negative); Nitrite Negative (Negative); Protein, Urine (Dipstick) 30 mg/dL (Neg-Trace); Specific Gravity, Urine 1.012 (1.002-1.036); Squamous Epithelial 0-3 HPF (0-3); Urobilinogen Normal mg/dL (Less than 2); WBC/HPF 21-50 HPF (0-3); Yeast-Budding 3+ HPF (None Seen); Yeast-Hyphae Rare HPF (None Seen); pH, Urine 5.5 (5.0-9.0)
[2022-06-27 21:06] LABS: Urine Culture Reflex Yes Yes
[2022-06-28 06:54] LABS: #Basophils 0.1 thou/uL (0.0-0.2); #Eosinphils 0.1 thou/uL (0.0-0.7); #Lymphocytes 1.8 thou/uL (1.20-3.40); #Monocytes 0.8 thou/uL (0.11-0.59); #Neutrophils 9.4 thou/uL (1.40-6.50); %Basophils 0.5 % (0.0-1.0); %Eosinophils 0.7 % (0.0-10.0); %Lymphocytes 15.1 % (21.0-51.0); %Monocytes 6.2 % (0.0-10.0); %Neutrophils 77.5 % (42.0-75.0); Hemoglobin 8.3 g/dL (14.0-18.0); Mean Corpuscular HGB CONC 30.3 g/dL (32.0-36.0); Mean Corpuscular Volume 85.7 fl (78.0-98.0); Mean Platelet Volume 6.9 fL (7.4-10.4); Platelet Count 368 thou/uL (130-400); White Blood Cell (WBC) Count 12.2 thou/uL (4.8-10.8)
[2022-06-28 07:11] LABS: Anion Gap 10 mmol/L (10-20); BUN (Urea Nitrogen) 8 mg/dL (8.4-25.7); Calc. Creatinine Clearance 230 mL/min (70-130); Calcium 7.7 mg/dL (7.8-10.44); Carbon Dioxide 25 mmol/L (23-31); Chloride 105 mmol/L (98-107); Estimated GFR 108; Glucose 83 mg/dL (80-115); Potassium 4.2 mmol/L (3.5-5.1); Sodium 136 mmol/L (136-145)
[2022-06-28] MEDS: Insulin Glargine 30 UNITS/0.3 ML VIAL SC SCH ×2 (08:26→20:03)
[2022-06-28] MEDS: Enoxaparin Sodium 40 MG/0.4 ML SYRINGE SC SCH (08:27)
[2022-06-28] MEDS ORDERED: Ondansetron ODT 8 MG TAB SL PRN (10:48)
[2022-06-28] MEDS ORDERED: Fluconazole 100 MG TAB PO SCH (11:00)
[2022-06-28] MEDS: Metoclopramide HCl 10 MG TAB PO SCH ×3 (11:51→20:02)
[2022-06-28] MEDS ORDERED: Pantoprazole 40 MG VIAL IVP SCH (15:30)
[2022-06-28] MEDS: Acetaminophen 325 MG TAB PO PRN ×2 (16:24→20:02)
[2022-06-28] MEDS: Sucralfate 1 GM/10 ML UDCUP PO SCH ×2 (16:24→20:01)
[2022-06-28] MEDS: Lisinopril 20 MG TAB PO SCH (20:01)
[2022-06-28] MEDS: Atorvastatin Calcium 40 MG TAB PO SCH (20:02)
[2022-06-29] MEDS: Insulin Glargine 30 UNITS/0.3 ML VIAL SC SCH (08:29)
[2022-06-29] MEDS: Enoxaparin Sodium 40 MG/0.4 ML SYRINGE SC SCH (08:31)
[2022-06-29] MEDS: Sucralfate 1 GM/10 ML UDCUP PO SCH ×2 (08:31→11:32)
[2022-06-29] MEDS: Metoclopramide HCl 10 MG TAB PO SCH ×2 (08:31→11:32)
[2022-06-29] MEDS ORDERED: Fluconazole 100 MG TAB PO SCH (09:00)
[2022-06-29] MEDS ORDERED: Pantoprazole 40 MG VIAL IVP SCH (09:00)
[2022-06-29 16:02] VITALS: BP 126/72; TEMP 98.3
== END 2022-06-29 16:01 | DRG 871 ==
LOC: ERS 19:03 → CCU 22:00 → T4-B 06-20 16:51
PROVIDERS: ADMIT Student in an Organized Health Care Education/Training Program; ATTEND Internal Medicine
PROC: 3E04329 Introduction of Other Anti-infective into Central Vein, Percutaneous Approach (ICD-10-PCS; 2022-06-19)
PROC: 02H633Z Insertion of Infusion Device into Right Atrium, Percutaneous Approach (ICD-10-PCS; 2022-06-19)
PROC: 0T9B70Z Drainage of Bladder with Drainage Device, Via Natural or Artificial Opening (ICD-10-PCS; principal; 2022-06-27)
DX: A41.9 Sepsis, unspecified organism (principal); E11.10 Type 2 diabetes mellitus with ketoacidosis without coma; R65.21 Severe sepsis with septic shock; N17.9 Acute kidney failure, unspecified; L03.115 Cellulitis of right lower limb; L03.311 Cellulitis of abdominal wall; N39.0 Urinary tract infection, site not specified; Z68.42 Body mass index [BMI] 45.0-49.9, adult; L03.315 Cellulitis of perineum; E11.628 Type 2 diabetes mellitus with other skin complications; I10 Essential (primary) hypertension; E11.43 Type 2 diabetes mellitus with diabetic autonomic (poly)neuropathy; N47.1 Phimosis; Z20.822 Contact with and (suspected) exposure to COVID-19; R62.7 Adult failure to thrive; D35.01 Benign neoplasm of right adrenal gland; I48.0 Paroxysmal atrial fibrillation; Z74.01 Bed confinement status; Z79.82 Long term (current) use of aspirin; Z79.899 Other long term (current) drug therapy; Z79.4 Long term (current) use of insulin; Z79.01 Long term (current) use of anticoagulants; K31.84 Gastroparesis
CPT/HCPCS: 36415; 36416; 36556; 71045; 74176; 80048; 80053; 81001; 82010; 82550; 82553; 82805; 83605; 83690; 83880; 84484; 85025; 85610; 85730; 87040; 87086; 87811; 93005; 93970; 94760; 96361; 96365; 96374; 96375; 97139; C9113; J0692; J1650; J1815; J1940; J2185; J2405; J2543; J3370; J3480; J3490; J7030; J7042; J7050; U0002